=== PATIENT | female | born 1990 | race African-American/Black ===

== ENCOUNTER 2020-01-20 16:51 | Emergency (ER) | payer BC, OTHER ==
--- NOTE | 2020-01-20 16:56 | PDOC ---
Rapid Medical Evaluation Time Seen by Provider: 01/20/20 16:54 Medical Evaluation: 01/20/20 16:55 HPI: + at home and has abdominal cramping PE: No gross deficits ORDERS: Quantitative [facility] Discharge Disposition - Diagnosis Abdominal cramping affecting - Referrals - Patient Instructions - Post Discharge Activity
[2020-01-20 17:58] LABS: EPI CELLS 16.1 /HPF (0-5/HPF); HYALINE CASTS 6 /lpf (0-8); PH,URINE 8.5 (5.0-8.0); URINE APPEARANCE CLOUDY; URINE BACTERIA 157.4 /hpf (NEGATIVE); URINE BILIRUBIN NEGATIVE (NEGATIVE); URINE COLOR YELLOW; URINE GLUCOSE (UA) NEGATIVE (NEGATIVE); URINE KETONE NEGATIVE (NEGATIVE); URINE LEUK ESTERASE TRACE (NEGATIVE); URINE NITRITE NEGATIVE (NEGATIVE); URINE PROTEIN TRACE (NEGATIVE); URINE RBC 1 /hpf (0-4); URINE WBC 3 /hpf (0-5)
[2020-01-20 20:33] LABS: BASO % 0.5 % (0-2.0); EOS % 1.2 % (0-4.5); HEMATOCRIT 34.1 % (32.4-45.2); HEMOGLOBIN 11.5 GM/dL (10.7-15.3); LYMPH % 42.1 % (8-40); MCHC 33.8 g/dl (32.0-36.0); MEAN CELL VOLUME 94.7 fl (80-96); MEAN PLT VOLUME 7.8 fl (7.5-11.1); MONO % 9.7 % (3.8-10.2); NEUT % 46.5 % (42.8-82.8); PLATELET COUNT 280 K/MM3 (134-434); RDW 12.3 % (11.6-15.6); WHITE BLOOD COUNT 8.6 K/mm3 (4.0-10.0)
[2020-01-20 21:21] LABS: BILIRUBIN,TOTAL 0.5 mg/dL (0.2-1); BLOOD UREA NITROGEN 19.5 mg/dL (7-18); CALCIUM 8.1 mg/dL (8.5-10.1); CREATININE 0.6 mg/dL (0.55-1.3); TOT PROT 7.5 g/dl (6.4-8.2)
--- NOTE | 2020-01-20 22:55 | PDOC ---
History of Present Illness - General Chief Complaint: Pain, Acute Stated Complaint: ABD PAIN/PREG. Time Seen by Provider: 01/20/20 16:54 History Source: Patient Exam Limitations: No Limitations - History of Present Illness Initial Comments: 01/20/20 22:45 Patient is a 29-year-old female LMP 12/07/19, with history of ovarian torsion with oophorectomy in 2014 here with complaints of lower abdominal pain x3 days. Patient states her pain is a crampy type 8/10 with no aggravating or alleviating factors. states she took a test and it was positive and is concerned for torsion or an ectopic . Patient also concerned about her liver enzymes. States that her primary care doctor mentioned that her liver enzymes were elevated but did not go for follow-up because she lost her insurance. She denies any nausea or vomiting, vaginal bleeding, vaginal disc harge. PMD: Dr. Hurtado PMHX: as above PSOCHX: neg etoh, drug, cig FamHX: Noncontributory ALL: NKDA GENERAL/CONSTITUTIONAL: [No fever or chills. No weakness. No weight change.] HEAD, EYES, EARS, NOSE AND THROAT: [No change in vision. No ear pain or discharge. No sore throat.] CARDIOVASCULAR: [No chest pain or shortness of breath.] RESPIRATORY: [No cough, wheezing, or hemoptysis.] GASTROINTESTINAL: [No nausea, vomiting, diarrhea or constipation. No rectal bleeding.] GENITOURINARY: [No dysuria, frequency, or change in urination.] MUSCULOSKELETAL: [No joint or muscle swelling or pain. No neck or back pain.] SKIN AND BREASTS: [No rash or easy bruising.] NEUROLOGIC: [No headache, vertigo, loss of consciousness, or loss of sensation.] PSYCHIATRIC: [No depression or anxiety.] ENDOCRINE: [No increased thirst. No abnormal weight change.] HEMATOLOGIC/LYMPHATIC: [No anemia, easy bleeding, or history of blood clots.] ALLERGIC/IMMUNOLOGIC: [No hives or skin allergy. No latex allergy.] GENERAL: [The patient is awake, alert, and fully oriented, in no acute distress.] HEAD: [Normal with no signs of trauma.] EYES: [Pupils equal, round and reactive to light, extraocular movements intact, sclera anicteric, conjunctiva clear.] ENT: [Ears normal, nares patent, oropharynx clear without exudates. Moist mucous membranes.] NECK: [Normal range of motion, supple without lymphadenopathy, JVD, or masses.] LUNGS: [Breath sounds equal, clear to auscultation bilaterally. No wheezes, and no crackles.] HEART: [Regular rate and rhythm, normal S1 and S2 without murmur, rub.] ABDOMEN: [Soft, (+) tenderness in the suprapubic area, normoactive bowel sounds. No guarding, no rebound. No masses.] EXTREMITIES: [Normal range of motion, no edema. No clubbing or cyanosis. No cords, erythema, or tenderness.] NEUROLOGICAL: [Cranial nerves II through XII grossly intact. Normal speech, normal gait.] PSYCH: [Normal mood, normal affect.] SKIN: [Warm, Dry, normal turgor, no rashes or lesions noted.] Past History - Past Medical History Allergies/Adverse Reactions: Allergies Allergy/AdvReac Type Severity Reaction Status Date / Time No Known Allergies Allergy Verified 01/20/20 16:57 Home Medications: Ambulatory Orders NK [No Known Home Medication] 01/20/20 COPD: No - Psycho Social/Smoking Cessation Hx Smoking History: Never smoked Hx Alcohol Use: No Drug/Substance Use Hx: No *Physical Exam - Vital Signs Last Vital Signs Temp Pulse Resp BP Pulse Ox 98.1 F 115 H 20 107/69 100 01/20/20 16:55 01/20/20 16:55 01/20/20 16:55 01/20/20 16:55 01/20/20 16:55 ED Treatment Course - LABORATORY CBC & Chemistry Diagram: 01/20/20 20:00 01/20/20 20:00 - ADDITIONAL ORDERS Additional order review: Laboratory Results 01/20/20 01/20/20 01/20/20 20:00 17:18 17:18 Sodium 137 Potassium 4.0 Chloride 104 Carbon Dioxide 26 Anion Gap 6 L BUN 19.5 H Creatinine 0.6 Est GFR (CKD-EPI)AfAm 144.78 Est GFR (CKD-EPI)NonAf 124.92 Random Glucose 86 Calcium 8.1 L Total Bilirubin 0.5 AST 40 H ALT 42 Alkaline Phosphatase 44 L Total Protein 7.5 Albumin 4.0 Beta HCG, Quant 5599.0 5441.7 Urine Color Yellow Urine Appearance Cloudy Urine pH 8.5 H Ur Specific [place] 1.028 Urine Protein Trace Urine Glucose (UA) Negative Urine Ketones Negative Urine Blood Negative Urine Nitrite Negative Urine Bilirubin Negative Urine Urobilinogen 1.0 Ur Leukocyte Esterase Trace Urine WBC (Auto) 3 Urine RBC (Auto) 1 Urine Casts (Auto) 6 U Epithel Cells (Auto) 16.1 Urine Bacteria (Auto) 157.4 01/20/20 20:00 RBC 3.60 MCV 94.7 MCHC 33.8 RDW 12.3 MPV 7.8 Neutrophils % 46.5 Lymphocytes % 42.1 H Monocytes % 9.7 Eosinophils % 1.2 Basophils % 0.5 - RADIOLOGY Radiology Studies Ordered: Category Date Time Status TRANSVAGINAL US PREG [US] Stat Ultrasound 01/20/20 21:21 Ordered Medical Decision Making - Medical Decision Making 01/20/20 22:45 Patient is a 29-year-old female LMP 12/07/19, with history of ovarian torsion with oophorectomy in 2013 here with complaints of lower abdominal pain x3 days. Patient states her pain is a crampy type 8/10 with no aggravating or alleviating factors. states she took a test and it was positive and is concerned for torsion or an ectopic . Patient also concerned about her liver enzymes. States that her primary care doctor mentioned that her liver enzymes were elevated but did not go for follow-up because she lost her insurance. She denies any nausea or vomiting, vaginal bleeding, vaginal discharge. Patient with abdominal pain rule out ectopic Labs Ultrasound transvaginal Labs reviewed beta was 5000+ UA is negative Ultrasound noted IUP 6 weeks 1 day Labs reviewed liver enzymes done notes AST is 40, 3 points above the upper limit of normal. This finding was discussed with the patient and instructed to follow-up with her primary care doctor for further work-up if indicated. Selected Entries 01/21/20 00:10 Temperature 97.8 F Pulse Rate [ 99 H Left Radial] Respiratory 17 Rate Blood Pressure 113/72 [Right Arm] O2 Sat by Pulse 98 Oximetry (%) I discussed the physical exam findings, ancillary test results and final diagnoses with the patient. I answered all of the patient's questions. The patient was satisfied with the care received and felt comfortable with the discharge plan and treatment plan. The Patient agrees to follow up with the primary care physician within 24-72 hours. Discharge - Discharge Information Problems reviewed: Yes Clinical Impression/Diagnosis: Abdominal cramping affecting Condition: Stable Disposition: HOME - Follow up/Referral Referrals: Beatriz Flores MD [Primary Care Provider] - - Patient Discharge Instructions Patient Printed Discharge Instructions: DI for Abdominal Pain -- Early Additional Instructions: Your Discharge Instructions: You must call primary care physician within 24 hours to arrange follow-up. Return to the Emergency Department with any new, persistent or worsening sym ptoms, for fever, chills, SOB, dizziness or any other concerning changes that may occur. Follow-up with your [facility] in 1 to 2 days. - Post Discharge Activity
[2020-01-21 00:11] VITALS: BP 113/72; PULSE 99; TEMP 97.8
== END 2020-01-21 00:13 | disposition home or self-care (01) ==
LOC: JER 16:51
DX: O26.891 Other specified pregnancy related conditions, first trimester (principal); Z3A.00 Weeks of gestation of pregnancy not specified; R10.2 Pelvic and perineal pain
CPT/HCPCS: 36415; 76817-TC; 80053; 81003; 84702; 85025; 87086; 99284-25